=== PATIENT | male | born 1975 | race Caucasian/White ===

== ENCOUNTER 2017-09-21 12:51 | Emergency (ER) | payer SELFPAY ==
--- NOTE | 2017-09-21 16:04 | Cat Scan Report ---
CT HEAD WITHOUT CONTRAST INDICATION: Neurologic deficits < 6 hours or symptoms present upon awakening. COMPARISON: None similar at this institution. FINDINGS: Noncontrast head CT demonstrates normal ventricles and sulci without acute or recent infarct, hemorrhage, mass effect or midline shift. No abnormal extra-axial fluid collections. Posterior fossa structures and basilar cisterns appear within normal limits. Symmetric eye globes. Left ethmoid air cell opacification posteriorly. Moderate to severe left or possibly bilateral sphenoid sinus mucosal thickening. Clear remainder imaged paranasal sinuses and mastoid air cells. A 3-4 mm rightward nasal septal spur partially imaged. Intact calvarium. Normal overlying scalp soft tissues. CONCLUSION: No acute intracranial CT abnormality with sinus disease noted, as described. Thank you for the opportunity to participate in this patient's care.
[2017-09-21 16:10] LABS: Basophils % (Auto) 0.3 % (0.0-1.8); Eosinophils % (Auto) 2.3 % (0.0-4.3); Hematocrit 48.9 % (35.5-45.6); Hemoglobin 16.6 gm/dl (11.8-15.2); Mean Corpuscular HGB Conc 34 % (32-34); Mean Corpuscular Hemoglobin 28 pg (28-32); Mean Corpuscular Volume 82 fl (84-94); Platelet Count 279 K/mm3 (140-440); Red Blood Count 5.95 M/mm3 (3.65-5.03); Red Cell Distribution Width 12.9 % (13.2-15.2)
[2017-09-21 16:19] LABS: INR 0.93 (0.87-1.13)
[2017-09-21 16:20] LABS: Partial Thromboplastin Time 27.4 Sec. (24.2-36.6)
[2017-09-21 16:31] LABS: Anion Gap 16 mmol/L; BUN/Creatinine Ratio 10; Blood Urea Nitrogen 8 mg/dL (9-20); Calcium 9.5 mg/dL (8.4-10.2); Carbon Dioxide 31 mmol/L (22-30); Chloride 100.7 mmol/L (98-107); Glucose 66 mg/dL (75-100); Potassium 4.1 mmol/L (3.6-5.0); Sodium 144 mmol/L (137-145)
--- NOTE | 2017-09-21 23:15 | Emergency Department Report ---
- General Chief Complaint: Headache Stated Complaint: HEADACHE,NAUSEA Time Seen by Provider: 09/21/17 21:49 Source: patient Mode of arrival: Ambulatory Limitations: No Limitations - History of Present Illness Initial Comments: The patient began to have flu like symptoms roughly 6 days ago, was given sudafed, which he states made him feel worse. He began to have dizziness, headaches, numbness to the lips. He states that he also feels tension in his neck, shoulders, and left hand. He has not had symptoms like this in the past. He denies smoking, ETOH use, illicit drug use. 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 He denies taking any routine medications, denies a past medical history, or surgical history. MD Complaint: fever, cough, sore throat, nasal congestion, sinus pain Onset/Timin -: days(s) Severity: moderate Severity scale (0 -10): 8 Quality: other (throbbing) Consistency: constant Improves With: nothing Worsens With: nothing Context: new medications (sudafed) Associated Symptoms: fever, chills, cough Treatments Prior to Arrival: "cold medicine" - Related Data Previous Rx's Medication Instructions Recorded Last Taken Type Amoxicillin/Potassium Clav 1 each PO BID #20 tablet 09/21/17 Unknown Rx [Augmentin 875-125 Tablet] Ibuprofen 800 mg PO TID PRN #30 tablet 09/21/17 Unknown Rx Allergies Allergy/AdvReac Type Severity Reaction Status Date / Time No Known Allergies Allergy Unverified 09/21/17 15:19 ED Review of Systems ROS: Stated complaint: HEADACHE,NAUSEA Other details as noted in HPI Constitutional: chills, fever Eyes: denies: eye pain, eye discharge, vision change ENT: throat pain, congestion. denies: ear pain Respiratory: cough. denies: shortness of breath, wheezing Cardiovascular: as per HPI. denies: chest pain, palpitations Endocrine: no symptoms reported Gastrointestinal: denies: abdominal pain, nausea, diarrhea Genitourinary: denies: urgency, dysuria Musculoskeletal: denies: back pain, joint swelling, arthralgia Skin: denies: rash, lesions Neurological: headache. denies: weakness, paresthesias Psychiatric: denies: anxiety, depression Hematological/Lymphatic: denies: easy bleeding, easy bruising ED Past Medical Hx - Medications Home Medications: Home Medications Medication Instructions Recorded Confirmed Last Taken Type Amoxicillin/Potassium Clav 1 each PO BID #20 tablet 09/21/17 Unknown Rx [Augmentin 875-125 Tablet] Ibuprofen 800 mg PO TID PRN #30 tablet 09/21/17 Unknown Rx ED Physical Exam - General Limitations: No Limitations General appearance: alert, in no apparent distress - Head Head exam: Present: atraumatic - Eye Eye exam: Present: normal appearance, PERRL, EOMI - ENT ENT exam: Present: mucous membranes moist - Neck Neck exam: Present: normal inspection - Respiratory Respiratory exam: Present: normal lung sounds bilaterally. Absent: respiratory distress - Cardiovascular Cardiovascular Exam: Present: regular rate, normal rhythm. Absent: systolic murmur, diastolic murmur, rubs, gallop - GI/Abdominal GI/Abdominal exam: Present: soft, normal bowel sounds - Rectal Rectal exam: Present: deferred - Extremities Exam Extremities exam: Present: normal inspection - Back Exam Back exam: Present: normal inspection - Neurological Exam Neurological exam: Present: alert, oriented X3, CN II-XII intact, normal gait - Psychiatric Psychiatric exam: Present: normal affect, normal mood, depressed - Skin Skin exam: Present: warm, dry, intact ED Course Vital Signs 09/21/17 09/21/17 09/21/17 15:13 21:42 21:54 Temperature 98.1 F 97.9 F Pulse Rate 93 H 78 Respiratory 22 Rate Blood Pressure 125/85 Blood Pressure 126/83 [Left] O2 Sat by Pulse 99 98 98 Oximetry 09/21/17 22:00 Temperature Pulse Rate 72 Respiratory 19 Rate Blood Pressure 107/57 Blood Pressure [Left] O2 Sat by Pulse 98 Oximetry ED Medical Decision Making - Lab Data Result diagrams: 09/21/17 15:57 09/21/17 15:57 Critical Care Time: No Critical care attestation.: If time is entered above; I have spent that time in minutes in the direct care of this critically ill patient, excluding procedure time. ED Disposition Clinical Impression: Sinusitis Qualifiers: Sinusitis location: sphenoidal Chronicity: acute Recurrence: non-recurrent Qualified Code(s): J01.30 - Acute sphenoidal sinusitis, unspecified Disposition: - TO HOME OR SELFCARE Is pt being admited?: No Does the pt Need Aspirin: No Condition: Stable Instructions: Sinusitis (ED) Additional Instructions: Rest, fluids, watch for worsening, new symptoms, return as needed, take medications as prescribed, follow up with your primary care doctor of choice. If you feel like you're having a lie threatening emergency, please call 911. Prescriptions: Amoxicillin/Potassium Clav [Augmentin 875-125 Tablet] 1 each PO BID #20 tablet Ibuprofen 800 mg PO TID PRN #30 tablet PRN Reason: Pain Referrals: PRIMARY CARE, [Primary Care Provider] - 3-5 Days Time of Disposition: 23:23
[2017-09-21] MEDS ORDERED: DECADRON IM ONE (23:28)
[2017-09-21] MEDS ORDERED: AUGMENTIN 875 MG PO ONE (23:29)
[2017-09-21] MEDS ORDERED: TORADOL IM ONE (23:29)
[2017-09-22 00:28] VITALS: BP 119/76
== END 2017-09-21 23:45 | disposition home or self-care (01) ==
LOC: ED 12:51
DX: J32.9 Chronic sinusitis, unspecified (principal)
CPT/HCPCS: 36415; 70450; 80048; 84484; 85025; 85610; 85670; 85730; 93005; 93010; 96372; 99284; J1100; J1885

== ENCOUNTER 2020-06-15 00:14 | Emergency (ER) | payer OTHER ==
--- NOTE | 2020-06-15 03:43 | Cat Scan Report ---
CT HEAD WITHOUT CONTRAST INDICATION: Wet ceiling tiles fell on right side of head TECHNIQUE: All CT scans at this location are performed using CT dose reduction for ALARA by means of automated exposure control. COMPARISON: 09/21/2017 FINDINGS: BRAIN: No hemorrhage or mass effect are seen. No evidence of acute infarction is noted. ORBITS: Normal as visualized. SOFT TISSUES OF HEAD: Normal. CALVARIUM: Normal. VISUALIZED PARANASAL SINUSES AND MASTOID AIR CELLS: Clear. ADDITIONAL FINDINGS: None. IMPRESSION: No acute intracranial abnormality. Signer Name: Steven Dimas MD Signed: 06/15/2020 3:39 AM Workstation Name: [id number]
[2020-06-15] MEDS ORDERED: IBUPROFEN 800 MG TAB PO ONE (07:58)
--- NOTE | 2020-06-15 08:03 | Emergency Department Report ---
ED General Adult HPI - General Chief complaint: Head Injury Stated complaint: RT EYE,EAR PAIN PUI?: No Time Seen by Provider: 06/15/20 07:29 Source: patient Mode of arrival: Ambulatory Limitations: No Limitations - History of Present Illness Initial comments: Is a 44-year-old male with no prior medical history who presents the ED complaining of right-sided headache and a left hand abrasion x2 to 3 days. Patient states 4 days ago while he was at work he had tiles fall on the right side of his head and landed on his hand while he was working. Patient states he has had some pain since then. Patient complains of throbbing right-sided head pain. Patient denies any swelling contusions or loss of consciousness after the incident. He denies fever/chills/chest pain/dizziness/blurry vision/shortness of breath or any other symptoms - Related Data Previous Rx's Medication Instructions Recorded Last Taken Type Amoxicillin/Potassium Clav 1 each PO BID #20 tablet 09/21/17 Unknown Rx [Augmentin 875-125 Tablet] Ibuprofen [Ibuprofen 800] 800 mg PO TID PRN #30 tablet 09/21/17 Unknown Rx Ibuprofen [Motrin 800 MG tab] 800 mg PO TID #30 tablet 06/15/20 Unknown Rx Allergies Allergy/AdvReac Type Severity Reaction Status Date / Time No Known Allergies Allergy Verified 09/21/17 23:36 ED Review of Systems ROS: Stated complaint: RT EYE,EAR PAIN Other details as noted in HPI Comment: All other systems reviewed and negative ED Past Medical Hx - Past Medical History Previous Medical History?: No - Surgical History Past Surgical History?: No - Social History Smoking Status: Never Smoker - Medications Home Medications: Home Medications Medication Instructions Recorded Confirmed Last Taken Type Amoxicillin/Potassium Clav 1 each PO BID #20 tablet 09/21/17 Unknown Rx [Augmentin 875-125 Tablet] Ibuprofen [Ibuprofen 800] 800 mg PO TID PRN #30 tablet 09/21/17 Unknown Rx Ibuprofen [Motrin 800 MG tab] 800 mg PO TID #30 tablet 06/15/20 Unknown Rx ED Physical Exam - General Limitations: No Limitations General appearance: alert, in no apparent distress - Head Head exam: Present: atraumatic, normocephalic, normal inspection - Eye Eye exam: Present: normal appearance, PERRL Pupils: Present: normal accommodation - ENT ENT exam: Present: mucous membranes moist - Neck Neck exam: Present: normal inspection, full ROM. Absent: tenderness - Respiratory Respiratory exam: Present: normal lung sounds bilaterally. Absent: respiratory distress, wheezes, chest wall tenderness - Cardiovascular Cardiovascular Exam: Present: regular rate, normal rhythm. Absent: systolic murmur, diastolic murmur, rubs, gallop - GI/Abdominal GI/Abdominal exam: Present: soft, normal bowel sounds - Rectal Rectal exam: Present: deferred - Extremities Exam Extremities exam: Present: normal inspection - Back Exam Back exam: Present: normal inspection - Neurological Exam Neurological exam: Present: alert, oriented X3, CN II-XII intact, normal gait, reflexes normal. Absent: motor sensory deficit - Psychiatric Psychiatric exam: Present: normal affect, normal mood - Skin Skin exam: Present: warm, dry, intact, normal color. Absent: rash ED Course Vital Signs 06/15/20 02:42 Temperature 98.1 F Pulse Rate 74 Respiratory 16 Rate Blood Pressure 178/93 O2 Sat by Pulse 100 Oximetry ED Medical Decision Making - Radiology Data Radiology results: report reviewed, image reviewed CT HEAD WITHOUT CONTRAST INDICATION: Wet ceiling tiles fell on right side of head TECHNIQUE: All CT scans at this location are performed using CT dose reduction for ALARA by means of automated exposure control. COMPARISON: 09/21/2017 FINDINGS: BRAIN: No hemorrhage or mass effect are seen. No evidence of acute infarction is noted. ORBITS: Normal as visualized. SOFT TISSUES OF HEAD: Normal. CALVARIUM: Normal. VISUALIZED PARANASAL SINUSES AND MASTOID AIR CELLS: Clear. ADDITIONAL FINDINGS: None. IMPRESSION: No acute intracranial abnormality. Signer Name: Steven Dimas MD Signed: 06/15/2020 3:39 AM Workstation Name: [id number] Transcribed By: GJ Dictated By: Steven Dimas MD Electronically Authenticated By: Steven Dimas MD Signed Date/Time: 06/15/20 0339 - Medical Decision Making 44-year-old male presents to ED with myalgia as well as headache from an injury that happened 4 days ago ED course: Patient received pain medicine in the ED in ED. CT scan was ordered. CT scan shows no acute findings, see report above I discussed all this findings with the patient. Discussed with patient to rest for the next couple days Vital signs are normal patient is in no acute distress Discussed with patient follow-up with primary care physician. Discussed the patient and take medications as prescribed. Patient has no neurological deficit. Patient is alert and oriented 3 and understands all instructions given. Critical care attestation.: If time is entered above; I have spent that time in minutes in the direct care of this critically ill patient, excluding procedure time. ED Disposition Clinical Impression: Headache, Myalgia, Abrasion, hand without infection Disposition: - TO HOME OR SELFCARE Is pt being admited?: No Does the pt Need Aspirin: No Condition: Stable Instructions: Acute Headache (ED), Concussion (ED), Minor Head Injury (ED) Additional Instructions: Make sure to follow up with the primary care physician as discussed. Take all your medications as you've been prescribed. If you have any worsening symptoms or develop new symptoms please return to ED immediately. Prescriptions: Ibuprofen [Motrin 800 MG tab] 800 mg PO TID #30 tablet Referrals: PRIMARY CAREMD [Primary Care Provider] - 3-5 Days [facility] [Outside] - 3-5 Days [facility] [place] [Outside] - 3-5 Days LENNY LOVETT MD [Staff Physician] - 3-5 Days Forms: Accompanied Note, Work/School Release Form(ED) Time of Disposition: 08:06
[2020-06-15 08:26] VITALS: BP 127/86
== END 2020-06-15 08:36 | disposition home or self-care (01) ==
LOC: ED 00:14
DX: S60.512A Abrasion of left hand, initial encounter (principal); R51 Headache; Z79.1 Long term (current) use of non-steroidal anti-inflammatories (NSAID); Z79.2 Long term (current) use of antibiotics; W18.30XA Fall on same level, unspecified, initial encounter; Y93.89 Activity, other specified; Y92.69 Other specified industrial and construction area as the place of occurrence of the external cause; Y99.8 Other external cause status
CPT/HCPCS: 70450; 99283